=== PATIENT | female | born 1955 | race Caucasian/White ===

== ENCOUNTER 2020-02-15 10:28 | Outpatient (CLI) | payer MEDICARE, OTHER, SELFPAY ==
--- NOTE | 2020-02-15 10:43 | US_ITS ---
WS: [id number] ULTRASOUND PELVIS TECHNIQUE: Transabdominal and transvaginal. ULTRASOUND PELVIS TECHNIQUE: Transabdominal. CLINICAL INFORMATION: PELVIC PAIN : No. COMPARISON: None. FINDINGS: Atrophic uterus Orientation: Anteverted. Size: 7.2 cm x 3.5 cm x 2.8 cm. Masses: None. Cervix: Incidental nabothian cysts. Endometrium: Normal. Endometrium thickness: 0.4 cm. Adnexa: Neither ovary is visualized. No adnexal masses. Free fluid: None. Other findings: None. US/US pelvic with transvaginal IMPRESSION: 1. Atrophic uterus. Normal endometrium measuring 4 mm. 2. Neither ovary is visualized. No adnexal masses. 3. No free fluid in the cul-de-sac.
== END 2020-02-15 10:29 | disposition home or self-care (01) ==
LOC: RAD 10:34
PROVIDERS: PCP Family Medicine; Visit Provider Family Medicine
DX: R10.2 Pelvic and perineal pain (principal); N85.8 Other specified noninflammatory disorders of uterus
CPT/HCPCS: 76830; 76856

== ENCOUNTER 2020-02-23 10:47 | Outpatient (CLI) | payer MEDICARE, OTHER, SELFPAY ==
--- NOTE | 2020-02-23 10:55 | MM_ITS ---
WS: [id number] BILATERAL SCREENING DIGITAL MAMMOGRAM WITH CAD HISTORY: SCREENING COMPARISON: 06/15/2018 and 06/08/2017 Bilateral CC and MLO views submitted. Computer aided detection analyzed. Breast composition: The breasts are almost entirely fatty. No suspicious masses, microcalcifications or architectural distortion. Benign bilateral calcifications. MM/[id number] IMPRESSION: BI-RADS: 2-Benign FOLLOW UP: 1 Year Follow-up
== END 2020-02-23 10:48 | disposition home or self-care (01) ==
LOC: RADSHAW 10:52
PROVIDERS: PCP Family Medicine; Visit Provider Family Medicine
DX: Z12.31 Encounter for screening mammogram for malignant neoplasm of breast (principal)
CPT/HCPCS: 77067

== ENCOUNTER 2020-06-21 12:57 | Outpatient (CLI) | payer MEDICARE, OTHER, SELFPAY ==
--- NOTE | 2020-06-21 13:17 | CT_ITS ---
WS: [id number] CT PELVIS WITH CONTRAST. HISTORY: PELVIC PAIN TECHNIQUE: Contiguous imaging is performed of the pelvis with contrast. Coronal and sagittal reformat s are reviewed. All CT scans at [facility] use at least one of these dose optimization te chniques: automated exposure control; mA and/or kV adjustment per patient size (includes targeted exa ms where dose is matched to clinical indication); or iterative reconstruction. DLP: 1501.82 mGycm COMPARISON: None available. Prior appendectomy. The visualized GI tract is negative. No free fluid or adenopathy. No significant diverticular disease. Small atrophic ovary and uterus. Anterior pelvic wall hernia measures 3.4 cm. Omental fat is herniating through the defect. Mild bilateral facet joint arthritis. CT/CT pelvis w con* [id number] IMPRESSION: 1. No acute pelvic abnormality. 2. Ventral pelvic omental hernia. Note herniation of GI tract. 3. No adenopathy or ascites.
[2020-06-21] MEDS: iohexol 300 mg/mL 50 mL Btl PO (13:19)
[2020-06-21 13:49] LABS: Blood Urea Nitrogen 9 mg/dL (8-23); Glomerular Filtration Rate 83.7 mL/min (90-130)
[2020-06-21] MEDS: iohexol 300 mg/mL 100 mL Btl IV (14:00)
== END 2020-06-21 12:58 | disposition home or self-care (01) ==
PROVIDERS: PCP Family Medicine; Visit Provider Family Medicine
DX: R10.2 Pelvic and perineal pain (principal); K45.8 Other specified abdominal hernia without obstruction or gangrene
CPT/HCPCS: 72193; 82565; 84520; Q9967

== ENCOUNTER 2020-07-03 08:06 | Outpatient (CLI) | payer MEDICARE, OTHER, SELFPAY ==
[2020-07-03] MEDS: iohexol 300 mg/mL 50 mL Btl PO (08:46)
--- NOTE | 2020-07-03 09:30 | CT_ITS ---
WS: [id number] CT ABDOMEN AND PELVIS WITH CONTRAST HISTORY: R10.9 - Unspecified abdominal pain TECHNIQUE: Imaging performed of the abdomen and pelvis with IV contrast. Single phase imaging of the abdomen. Coronal and sagittal reformats are submitted. All CT scans at [facility] use at least one of these dose optimization techniques: automated exposure control; mA and/or kV adjustment per patient size (includes targeted exams where dose is matched to clinical indication); or iterativ e reconstruction. IV CONTRAST: Omnipaque 300; 95 mL IV. Oral contrast: No DLP: 1072.34 mGycm COMPARISON: 06/21/2020. Lower thorax: Lung bases are clear. Heart is normal size. Small hiatal hernia. Liver/biliary system: Surface of the liver is slightly irregular and lobulated with mild heterogeneit y. There is also mild pneumobilia. No mass or bile duct dilatation. Gallbladder: Status post cholecystectomy. Pancreas: Normal. Spleen: Normal. Adrenal glands: Normal. Right kidney: Normal. Left kidney: Normal. Aorta: Normal. There are numerous enlarged serpiginous venous structures in the RIGHT upper abdomen f rom splenorenal shunting which have been previously described. 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 Lymphadenopathy: None. Free fluid: None. GI tract: Unremarkable. Abdominal wall: Fat-containing ventral supraumbilical abdominal wall hernia with a diameter 5.9 cm. T here is an additional fat-containing midline hernia infraumbilical. Pelvis: Atrophic uterus. No free fluid or adenopathy. Large venous varicosities along the LEFT latera l peritoneal cavity into the pelvis. Bones: Unremarkable. CT/CT abdomen pelvis w con* [id number] IMPRESSION: 1. Prior cholecystectomy. 2. Small cirrhotic appearing liver with mild pneumobilia. Pneumobilia may be o n the basis of a cholecystectomy. 3. No abdominal or pelvic. 4. Supraumbilical and infraumbilical abdominal wall hernias containing fat onl y.
[2020-07-03] MEDS: iohexol 300 mg/mL 100 mL Btl IV (09:43)
== END 2020-07-03 08:07 | disposition home or self-care (01) ==
PROVIDERS: PCP Family Medicine; Visit Provider Surgery
DX: R10.9 Unspecified abdominal pain (principal); Z90.49 Acquired absence of other specified parts of digestive tract; K43.9 Ventral hernia without obstruction or gangrene
CPT/HCPCS: 74177; Q9967

== ENCOUNTER → 2020-07-27 11:20 | Outpatient (BNVA) | payer MEDICARE, OTHER, SELFPAY | PROVIDERS: PCP Family Medicine; Visit Provider Surgery | DX: Z01.812 Encounter for preprocedural laboratory examination (principal); Z20.822 Contact with and (suspected) exposure to COVID-19 | CPT/HCPCS: 87635 ==

== ENCOUNTER 2020-08-01 09:19 | Day surgery (SDC) | payer MEDICARE, OTHER, SELFPAY ==
[2020-07-30 14:17] VITALS: BMI 45.3
--- NOTE | 2020-08-01 09:44 | ANES.PREANE2 ---
Pre-Anesthetic Assessment Pre-Anesthetic Assessment: Height/Weight: Height 1.55 m Weight 108.862 kg Proposed Procedure: Operation Date: 08/01/20 10:45 Proposed Procedures p Colonoscopy 75708 Z86.010(Not Applicable) - Geoffrey Rivera MD Was Beta Lou taken within 24 hours: N/A Was Clonidine taken within 24 hours: N/A Social: Social History: No alcohol and No tobacco Exam: Pre-Anes Outpt Exam: alert, oriented x 3, clear to auscultation bilaterally and regular rate & rhythm Airway: Submandibular: WNL Cervical ROM: WNL MP: 2 Dentition: Chipped Additional comments: Poor dentition GI: Comments: Liver Tx Metabolic: Metabolic: Morbid obesity Anesthetic Plan: ASA status: 3 Anesthesia: MAC Risk of > 500 ml blood loss (7ml/kg in children): No PFSH Anesthesia PFSH: Medical History Hypotension Migraines Renal insufficiency Surgical History History of cholecystectomy History of colonoscopy with polypectomy 2016 History of liver transplant Family History Other Hypertension Denies family history of Diabetes CAD (coronary artery disease) Clotting disorder Dementia Hyperlipidemia Psychiatric illness Chronic kidney disease (CKD) Suicide Anesthesia complication Bleeding disorder Family history of premature coronary artery disease Lung disease Cancer Stroke Social History Smoking and tobacco status: former smoker Second hand smoke exposure: No Alcohol intake: never Data Anesthesia Cardiac Studies: No Data to Display
[2020-08-01 10:03] VITALS: BP 127/105; PULSE 86; RESP 20; TEMP 36.3; O2SAT 98
[2020-08-01] MEDS: sodium chloride 0.9% 1,000 ML 30 ML IV (10:09)
--- NOTE | 2020-08-01 10:12 | ECG_ITS ---
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 Measurements Intervals [place] Rate: 66 P: 15 FL: 174 QRS: -4 QRSD: 77 T: 23 QT: 396 QTc: 417 Interpretive Statements SINUS RHYTHM WITH SINUS ARRHYTHMIA No previous ECG available for comparison Electronically Signed On 08-07-2020 18:38:35 CDT by Lara Welch M.D. [id number]
--- NOTE | 2020-08-01 10:38 | P.HP_ITS ---
Same Day Surgery H&P Indication for Procedure/HPI DATE OF PROCEDURE: August 01, 2020 CHIEF COMPLAINT/INDICATIONFOR SURGICAL PROCEDURE: History of colon polyp PREOP DIAGNOSIS: History of colon polyps PLANNED PROCEDRUE: Operation Date: 08/01/20 10:45 Proposed Procedures p Colonoscopy 36673 Z86.010(Not Applicable) - Geoffrey Rivera MD This is a pleasant 64 years old female patient morbidly obese with a current BMI 45.3 presents to my practice with history of ventral abdominal wall hernia as she has been complaining of some discomfort of her lower abdomen for quite some time. Patient undergone a CT scan of the pelvis that showed: 1. No acute pelvic abnormality. 2. Ventral pelvic omental hernia. Note herniation of GI tract. 3. No adenopathy or ascites. Patient comes today escorted by her and she reports that she had liver transplantation back in 2007 in [place] and currently she is being followed up on by her pathologist Dr.Alexa Richter White office #[phone]. Patient on Prograf (tacrolimus) and her levels have been followed up on by her team manager. She also reports to me that she had history of colon polyps and she is due for a colonoscopy. Patient recalls that she has been sore of her lower abdomen for the past 5 to 6 years in the form being aching, gets worse with walking and gets better by just laying down and has been referred to her legs Interim history 08/01/2020 CT scan of the abdomen and pelvis was done and showed IMPRESSION: 1. Prior cholecystectomy. 2. Small cirrhotic appearing liver with mild pneumobilia. Pneumobilia may be on the basis of a cholecystectomy. 3. No abdominal or pelvic. 4. Supraumbilical and infraumbilical abdominal wall hernias containing fat only. Patient comes today for surveillance colonoscopy ROS All systems have been reviewed negative except as per the above or per problem list Medications/Allergies* Home Medications Medication Instructions Recorded Confirmed Type fluticasone propionate 50 2 spray INTRANASAL DAILY 05/05/19 08/01/20 History mcg/actuation nasal spray,suspension furosemide 20 mg tablet 20 mg PO DAILY 05/05/19 08/01/20 History potassium chloride 20 mEq 20 meq PO BID 05/05/19 08/01/20 History tablet,extended release(part/cryst) tacrolimus 1 mg capsule, 1 mg PO Q12H 05/05/19 08/01/20 History immediate-release triamcinolone acetonide 0.5 % 1 applic TOPICAL TID 05/05/19 08/01/20 History topical cream sumatriptan succinate 100 mg PO 07/30/20 History Allergies/Adverse Reactions Allergy/AdvReac Type Severity Reaction Status Date / Time codeine Allergy Severe difficulty Verified 08/01/20 11:35 breathing Current Medications: Generic Name Dose Route Start Last Admin Trade Name Freq PRN Reason Stop Dose Admin Sodium Chloride 1,000 mls @ 30 mls/hr 08/01/20 10:00 08/01/20 10:09 Sodium Chloride 0.9% IV 08/02/20 09:59 30 mls/hr .Q24H DANI Administration Pertinent History/Comorbid Conditions* Medical History (Updated 06/28/20 @ 16:07 by Geoffrey Rivera MD) Hypotension Migraines Renal insufficiency Surgical History (Updated 06/28/20 @ 16:08 by Geoffrey Rivera MD) History of cholecystectomy History of colonoscopy with polypectomy 2015 History of liver transplant Family History (Updated 05/05/19 @ 14:02 by Monica Bourne LPN) Hypertension Denies family history of Diabetes CAD (coronary artery disease) Clotting disorder Dementia Hyperlipidemia Psychiatric illness Chronic kidney disease (CKD) Suicide Anesthesia complication Bleeding disorder Family history of premature coronary artery disease Lung disease Cancer Stroke Social History Smoking and tobacco status: former smoker Second hand smoke exposure: No Alcohol intake: never Pertinent Exam Findings alert, oriented x 3, clear to auscultation bilaterally, regular rate & rhythm and procedure specific exam findings (Abdominal examination nontender nondistended soft) Recommendations Surgery/Procedure today (Surveillance colonoscopy) Other Plans: Plan of care; After thorough history and physical examination and reviewing the chart, plan to perform surveillance colonoscopy. I discussed with the patient in details the risks,benefits,alternatives and indications.The risk of aspiration, bleeding, soft tissue injury, perforation of the colon and other potential concomitant complications were explained to the patient in details,also the potential need for Laproscoy/Laparotomy to repair any related complications including but not limited to colectomy and or Closotomy.The patient understood this well and did agree to proceed. Rationale was carefully and clearly discussed with the patient.Appropriate informed consent have been reviewed and signed All questions have been answered and all concerns have been addressed to patient's satisfaction. 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
[2020-08-01 11:39] LABS: Anion Gap 10.9 (5-19); Blood Urea Nitrogen 8 mg/dL (8-23); Calcium 8.4 mg/dL (8.5-10.5); Carbon Dioxide 27 mmol/L (22-29); Chloride 106 mmol/L (98-107); Glomerular Filtration Rate 83.7 mL/min (90-130); Glucose 87 mg/dL (65-115); Osmolality Calculated 288 mOsm/kg (285-295); Potassium 3.9 mmol/L (3.5-5.1); Sodium 140 mmol/L (136-145)
[2020-08-01 12:08] VITALS: BP 125/77; PULSE 73; RESP 18; TEMP 36.9; O2SAT 98
[2020-08-01 12:27] VITALS: BP 138/67; PULSE 74; RESP 18; O2SAT 98
--- NOTE | 2020-08-01 13:31 | ANE.PACU2 ---
Inpatient post-anesthesia follow up: Airway intact: Yes Vital signs: Temperature 98.4 F Pulse Rate 74 Respiratory Rate 18 Blood Pressure 138/67 Pulse Oximetry 98 Oxygen Delivery Me thod Room Air Oxygen Flow Rate Fraction of Inspir ed Oxygen Hydration adequate: Yes Nausea and vomiting: No Pain level: 1 Mental status: Baseline
== END 2020-08-01 12:41 | disposition home or self-care (01) ==
PROVIDERS: PCP Family Medicine; Visit Provider Surgery
PROC: 0DJD8ZZ Inspection of Lower Intestinal Tract, Via Natural or Artificial Opening Endoscopic (ICD-10-PCS; CPT 45378; principal; 2020-08-01 10:45)
DX: Z12.11 Encounter for screening for malignant neoplasm of colon (principal); Z86.010 Personal history of colon polyps; E66.01 Morbid (severe) obesity due to excess calories; Z68.42 Body mass index [BMI] 45.0-49.9, adult; Z87.891 Personal history of nicotine dependence
CPT/HCPCS: 45378; 80048; 93005; 96360; 96361; J7030

== ENCOUNTER 2020-08-14 10:45 | Outpatient (CLI) | payer MEDICARE, OTHER, SELFPAY ==
--- NOTE | 2020-08-14 11:18 | XR_ITS ---
WS: [id number] DEXA (DUAL ENERGY X-RAY ABSORPTIOMETRY) Bone mineral density was performed using a [employer] machine. HISTORY: POSTMENOPAUSAL COMPARISON: None available. Lumbar spine BMD (L1-L4): 1.110 g/cm2 T score: -0.6 Z score: -0.1 Total hip BMD: Left: 0.944 g/cm2. T score: -0.5 Z score: 0.0 Right: 0.905 g/cm2. T score: -0.8 Z score: -0.4 10 year probability of a major osteoporotic fracture is 8%. XR/XR DEXA axial skeleton* [id number] IMPRESSION: NORMAL BONE MINERAL DENSITY based upon the WHO classification for females.
== END 2020-08-14 10:46 | disposition home or self-care (01) ==
PROVIDERS: PCP Family Medicine; Visit Provider Family Medicine
DX: Z78.0 Asymptomatic menopausal state (principal)
CPT/HCPCS: 77080

== ENCOUNTER 2021-05-01 07:53 | Outpatient (CLI) | payer MEDICARE, OTHER, SELFPAY ==
--- NOTE | 2021-05-01 08:11 | MM_ITS ---
WS: [id number] BILATERAL DIGITAL SCREENING MAMMOGRAPHY WITH CAD CLINICAL INFORMATION: SCREENING HISTORY: Screening mammogram. No current complaints. COMPARISON: February 23, 2020 TECHNIQUE: Bilateral CC and MLO views. FINDINGS: Scattered fibroglandular densities bilaterally. No suspicious focal mass, asymmetry, calcifications, or architectural distortion. No evidence of malignancy. MM/[place] [id number] IMPRESSION: BI-RADS: 1-Negative FOLLOW UP: 1 Year Follow-up Recommend return to annual screening mammography.
== END 2021-05-01 07:54 | disposition home or self-care (01) ==
LOC: RADSHAW 08:05
PROVIDERS: PCP Family Medicine; Visit Provider Family Medicine
DX: Z12.31 Encounter for screening mammogram for malignant neoplasm of breast (principal)
CPT/HCPCS: 77067

== ENCOUNTER → 2021-07-16 17:28 | Outpatient (BNVA) | payer MEDICARE, OTHER, SELFPAY | PROVIDERS: PCP Family Medicine; Visit Provider Physician Assistant Medical | DX: R53.83 Other fatigue (principal); K74.60 Unspecified cirrhosis of liver; Z94.4 Liver transplant status; Z79.899 Other long term (current) drug therapy; Z48.298 Encounter for aftercare following other organ transplant; E66.01 Morbid (severe) obesity due to excess calories | CPT/HCPCS: 80048; 80076; 80197; 82607; 84443; 85007; 85025; 85027 ==

== ENCOUNTER → 2021-10-15 10:58 | Outpatient (BNVA) | payer MEDICARE, OTHER, SELFPAY | PROVIDERS: PCP Family Medicine; Visit Provider Family Medicine | DX: Z94.4 Liver transplant status (principal); Z98.890 Other specified postprocedural states; Z86.010 Personal history of colon polyps | CPT/HCPCS: 80048; 80076; 80197; 85025 ==

== ENCOUNTER → 2022-01-09 09:10 | Outpatient (BNVA) | payer MEDICARE, OTHER, SELFPAY | PROVIDERS: PCP Family Medicine; Visit Provider Family Medicine | DX: Z94.4 Liver transplant status (principal); Z79.899 Other long term (current) drug therapy | CPT/HCPCS: 80053; 80197; 85025 ==

== ENCOUNTER → 2022-04-17 11:01 | Outpatient (BNVA) | payer MEDICARE, OTHER, SELFPAY | PROVIDERS: PCP Family Medicine; Visit Provider Family Medicine | DX: Z94.4 Liver transplant status (principal); Z48.298 Encounter for aftercare following other organ transplant | CPT/HCPCS: 80053; 80197; 85025 ==

== ENCOUNTER → 2022-04-22 11:21 | Outpatient (BNVA) | payer MEDICARE, OTHER, SELFPAY | PROVIDERS: PCP Family Medicine; Visit Provider Family Medicine | DX: R60.9 Edema, unspecified (principal) | CPT/HCPCS: 83880 ==

== ENCOUNTER 2022-05-02 09:06 | Outpatient (CLI) | payer MEDICARE, OTHER, SELFPAY ==
--- NOTE | 2022-05-02 09:15 | MM_ITS ---
WS: [id number] BILATERAL SCREENING DIGITAL TOMOSYNTHESIS MAMMOGRAM WITH CAD HISTORY: SCREENING COMPARISON: 05/01/2021 and 04/25/2019 Bilateral CC and MLO views with tomosynthesis and synthetic mammography submitted. Computer aided det ection analyzed. Breast composition: There are scattered areas of fibroglandular density. No suspicious masses, microc alcifications or architectural distortion. MM/[place] [id number] IMPRESSION: BI-RADS: 1-Negative FOLLOW UP: 1 Year Follow-up
== END 2022-05-02 09:07 | disposition home or self-care (01) ==
PROVIDERS: PCP Family Medicine; Visit Provider Family Medicine
DX: Z12.31 Encounter for screening mammogram for malignant neoplasm of breast (principal)
CPT/HCPCS: 77063; 77067

== ENCOUNTER 2022-05-21 06:03 | Outpatient (CLI) | payer MEDICARE, OTHER, SELFPAY ==
--- NOTE | 2022-05-21 06:15 | USCV_ITS ---
Serenity Brothers Age: 66 Gender: F : 1955 Exam Date: 05/21/2022 06:16 Ordering Phys: Luis Richards MD Technologist: ANJU [place] [facility] [place]: EDE[place] BP: 142 / 84 HR: 71 Rhythm: Sinus Technical Quality: Adequate MEASUREMENTS (Male / Female) Normal Values 2D ECHO LVOT Diameter 2.0 cm LV Ejection Fraction MOD 2C 52.8 % LV Ejection Fraction 2C AL 51.3 % LA Diameter 3.1 cm LA Width 3.3 cm LA Height 5.6 cm RA Width 4.4 cm RA Height 4.8 cm Aorta at Sinotubular Diameter 2.3 cm IVC Diameter 2.0 cm M-MODE Aortic Annulus Diameter 2.8 cm LA Ao Ratio MM 1.0 MV E Point Septal Separation 0.8 cm DOPPLER AV Peak Velocity 165.0 cm/s LVOT Peak Velocity 71.3 cm/s AV Area Cont Eq vti 1.6 cm squared AV Area Cont Eq pk 1.4 cm squared MV Peak Velocity 111.0 cm/s MV Area PHT 3.5 cm squared Mitral E to A Ratio 0.8 MV E' Velocity 49.5 cm/s Mitral E to MV E' Ratio 8.0 Mitral E to LV E' Lateral Ratio 7.9 Mitral E to LV E' Septal Ratio 8.1 TR Peak Velocity 186.4 cm/s TR Peak Gradient 13.9 mmHg TR Mean Velocity 198.8 cm/s TR Mean Gradient 15.6 mmHg TR Velocity Time Integral 77.0 cm TV Peak E Velocity 54.0 cm/s Right Atrial Pressure 3.0 mmHg Pulmonary Artery Systolic Pressu 16.9 mmHg PV Peak Velocity 124.0 cm/s RV Acceleration Time 0.1 s RV Ejection Time 0.3 s RV AcT/ET 0.5 FINDINGS Left Ventricle Normal left ventricular size and systolic function, EF 55 % (visual). No regional wall motion abnormalities. Grade I/IV diastolic dysfunction (abnormal relaxation filling pattern), normal to mildly elevated filling pressures. Right Ventricle The right ventricle is normal in size and function. Right Atrium The right atrium is normal in size. Left Atrium Mildly increased left atrial size. Mitral Valve Mild mitral annular calcification. Aortic Valve No gross abnormalities noted Tricuspid Valve No gross abnormalities noted Pulmonic Valve Pulmonic valve not well visualized. Pericardium Normal pericardium without effusion. Aorta Normal ascending aorta dimension. IVC Normal inferior vena cava. CONCLUSIONS Normal left ventricular size and systolic function, EF 55 % (visual). No regional wall motion abnormalities. Grade I/IV diastolic dysfunction (abnormal relaxation filling pattern), normal to mildly elevated filling pressures. Mildly increased left atrial size. Mild mitral annular calcification. There is no pericardial effusion. There are no intracardiac masses. No similar previous studies are available for comparison. Dr Luis Butler MD FAC (Electronically Signed) Final Date: 24 May 2022 18:59 S
== END 2022-05-21 06:04 | disposition home or self-care (01) ==
LOC: RAD 06:05
PROVIDERS: PCP Family Medicine; Visit Provider Family Medicine
DX: R60.9 Edema, unspecified (principal); R07.9 Chest pain, unspecified; I34.0 Nonrheumatic mitral (valve) insufficiency; Z94.4 Liver transplant status; Z48.298 Encounter for aftercare following other organ transplant; E66.01 Morbid (severe) obesity due to excess calories
CPT/HCPCS: 80048; 80076; 80197; 85025; 93306

== ENCOUNTER → 2022-06-24 08:52 | Outpatient (BNVA) | payer MEDICARE, OTHER, SELFPAY | PROVIDERS: PCP Family Medicine; Visit Provider Family Medicine | DX: Z94.4 Liver transplant status (principal); K75.81 Nonalcoholic steatohepatitis (NASH); Z48.298 Encounter for aftercare following other organ transplant | CPT/HCPCS: 80048; 80076; 80197; 85025 ==

== ENCOUNTER → 2022-08-05 08:23 | Outpatient (BNVA) | payer MEDICARE, OTHER, SELFPAY | PROVIDERS: PCP Family Medicine; Visit Provider Family Medicine | DX: Z48.298 Encounter for aftercare following other organ transplant (principal); Z94.4 Liver transplant status; E66.01 Morbid (severe) obesity due to excess calories | CPT/HCPCS: 80048; 80076; 80197; 85025 ==

== ENCOUNTER → 2022-09-04 08:59 | Outpatient (BNVA) | payer MEDICARE, OTHER, SELFPAY | PROVIDERS: PCP Family Medicine; Visit Provider Family Medicine | DX: Z94.4 Liver transplant status (principal); Z79.899 Other long term (current) drug therapy; Z48.298 Encounter for aftercare following other organ transplant; E66.01 Morbid (severe) obesity due to excess calories | CPT/HCPCS: 80048; 80076; 80197; 85025 ==

== ENCOUNTER → 2022-10-13 08:14 | Outpatient (BNVA) | payer MEDICARE, OTHER, SELFPAY | PROVIDERS: PCP Family Medicine; Visit Provider Family Medicine | DX: Z94.4 Liver transplant status (principal); K75.81 Nonalcoholic steatohepatitis (NASH) | CPT/HCPCS: 80048; 80076; 80197; 85025 ==

== ENCOUNTER → 2022-12-25 10:54 | Outpatient (BNVA) | payer MEDICARE, OTHER, SELFPAY | PROVIDERS: PCP Family Medicine; Visit Provider Family Medicine | DX: N28.9 Disorder of kidney and ureter, unspecified (principal); Z94.4 Liver transplant status | CPT/HCPCS: 80053; 80197; 85025 ==

== ENCOUNTER → 2023-04-08 08:34 | Outpatient (BNVA) | payer MEDICARE, OTHER, SELFPAY | PROVIDERS: PCP Family Medicine; Visit Provider Family Medicine | DX: Z94.4 Liver transplant status (principal); N28.9 Disorder of kidney and ureter, unspecified | CPT/HCPCS: 80053; 85025 ==

== ENCOUNTER 2023-05-18 11:39 | Outpatient (CLI) | payer MEDICARE, OTHER, SELFPAY ==
--- NOTE | 2023-05-18 11:59 | MM_ITS ---
WS: [id number] BILATERAL 3D TOMOSYNTHESIS DIGITAL SCREENING MAMMOGRAPHY WITH CAD CLINICAL INFORMATION: SCREENING HISTORY: Screening mammogram. No current complaints. COMPARISON: 2022 TECHNIQUE: Bilateral CC and MLO views. FINDINGS: Scattered fibroglandular densities bilaterally. No suspicious focal mass, asymmetry, calcifications, or architectural distortion. No evidence of malignancy. A few incidental punctate calcifications. IMPRESSION: MM/[place] [id number] BI-RADS: 2-Benign FOLLOW UP: 1 Year Follow-up Recommend return to annual screening mammography.
== END 2023-05-18 11:40 | disposition home or self-care (01) ==
LOC: RAD 11:40
PROVIDERS: PCP Family Medicine; Visit Provider Family Medicine
DX: Z12.31 Encounter for screening mammogram for malignant neoplasm of breast (principal)
CPT/HCPCS: 77063; 77067

== ENCOUNTER → 2023-06-17 09:24 | Outpatient (BNVA) | payer MEDICARE, OTHER, SELFPAY | PROVIDERS: PCP Family Medicine; Visit Provider Family Medicine | DX: Z98.890 Other specified postprocedural states (principal); Z86.010 Personal history of colon polyps; Z94.4 Liver transplant status; N28.9 Disorder of kidney and ureter, unspecified; M25.559 Pain in unspecified hip; R60.9 Edema, unspecified; L03.115 Cellulitis of right lower limb; J20.9 Acute bronchitis, unspecified; S81.819A Laceration without foreign body, unspecified lower leg, initial encounter; R53.83 Other fatigue | CPT/HCPCS: 80053; 80197; 85025 ==

== ENCOUNTER → 2023-09-16 08:19 | Outpatient (BNVA) | payer MEDICARE, OTHER, SELFPAY | PROVIDERS: PCP Family Medicine; Visit Provider Family Medicine | DX: Z94.4 Liver transplant status (principal); N18.9 Chronic kidney disease, unspecified | CPT/HCPCS: 80053; 80197; 85025 ==

== ENCOUNTER → 2023-12-15 09:06 | Outpatient (BNVA) | payer MEDICARE, OTHER, SELFPAY | PROVIDERS: PCP Family Medicine; Visit Provider Family Medicine | DX: Z94.4 Liver transplant status (principal); N18.9 Chronic kidney disease, unspecified | CPT/HCPCS: 80053; 80197; 85025 ==

== ENCOUNTER → 2023-12-28 12:42 | Outpatient (BNVA) | payer MEDICARE, OTHER, SELFPAY | PROVIDERS: PCP Family Medicine; Visit Provider Family Medicine | DX: R53.83 Other fatigue (principal); E11.9 Type 2 diabetes mellitus without complications | CPT/HCPCS: 82306; 82607; 83880; 84443 ==

== ENCOUNTER → 2024-03-22 08:52 | Outpatient (BNVA) | payer MEDICARE, OTHER, SELFPAY | PROVIDERS: PCP Family Medicine; Visit Provider Family Medicine | DX: N18.9 Chronic kidney disease, unspecified (principal); Z94.4 Liver transplant status | CPT/HCPCS: 80053; 80197; 85025 ==

== ENCOUNTER → 2024-04-13 08:58 | Outpatient (BNVA) | payer MEDICARE, OTHER, SELFPAY | PROVIDERS: PCP Family Medicine; Visit Provider Family Medicine | DX: J06.9 Acute upper respiratory infection, unspecified (principal) | CPT/HCPCS: 87400; 87426 ==

== ENCOUNTER 2024-05-25 08:26 | Outpatient (CLI) | payer MEDICARE, OTHER, SELFPAY ==
--- NOTE | 2024-05-25 08:29 | MM_ITS ---
WS: [id number] BILATERAL SCREENING DIGITAL TOMOSYNTHESIS MAMMOGRAM WITH CAD HISTORY: SCREENING COMPARISON: 05/18/2023, 05/01/2021 and 05/02/2022 Bilateral CC and MLO views with tomosynthesis and synthetic mammography submitted. Computer aided detection analyzed. Breast composition: There are scattered areas of fibroglandular density. No suspicious masses, microcalcifications or architectural distortion. MM/MM scr BI tomosynthesis [id number] IMPRESSION: BI-RADS: 1 - Negative. FOLLOW UP: 1 Year Follow-up
== END 2024-05-25 08:27 | disposition home or self-care (01) ==
PROVIDERS: PCP Family Medicine; Visit Provider Family Medicine
DX: Z12.31 Encounter for screening mammogram for malignant neoplasm of breast (principal); R92.323 Mammographic fibroglandular density, bilateral breasts
CPT/HCPCS: 77063; 77067

== ENCOUNTER → 2024-06-22 08:08 | Outpatient (BNVA) | payer MEDICARE, OTHER, SELFPAY | PROVIDERS: PCP Family Medicine; Visit Provider Family Medicine | DX: N28.9 Disorder of kidney and ureter, unspecified (principal); N18.9 Chronic kidney disease, unspecified | CPT/HCPCS: 80197; 85025 ==

== ENCOUNTER → 2024-06-30 13:02 | Outpatient (BNVA) | payer MEDICARE, OTHER, SELFPAY | PROVIDERS: PCP Family Medicine; Visit Provider Family Medicine | DX: R53.83 Other fatigue (principal) | CPT/HCPCS: 83880; 84443 ==

== ENCOUNTER → 2024-10-17 09:01 | Outpatient (BNVA) | payer MEDICARE, OTHER, SELFPAY | PROVIDERS: PCP Family Medicine; Visit Provider Family Medicine | DX: N18.9 Chronic kidney disease, unspecified (principal); I10 Essential (primary) hypertension | CPT/HCPCS: 80053; 80197; 85025 ==

== ENCOUNTER → 2024-12-12 08:42 | Outpatient (BNVA) | payer MEDICARE, OTHER, SELFPAY | PROVIDERS: PCP Family Medicine; Visit Provider Family Medicine | DX: Z79.899 Other long term (current) drug therapy (principal); Z94.4 Liver transplant status; E66.01 Morbid (severe) obesity due to excess calories | CPT/HCPCS: 80048; 80076; 80197; 85007; 85027 ==

== ENCOUNTER → 2025-01-19 14:42 | Outpatient (BNVA) | payer MEDICARE, OTHER, SELFPAY | PROVIDERS: PCP Family Medicine; Visit Provider Dermatology | DX: L71.9 Rosacea, unspecified (principal); D48.5 Neoplasm of uncertain behavior of skin | CPT/HCPCS: 11102; 99204 ==

== ENCOUNTER 2025-01-20 07:39 | Outpatient (CLI) | payer MEDICARE, OTHER, SELFPAY ==
--- NOTE | 2025-01-20 08:00 | USCV_ITS ---
Serenity Brothers Age: 69 Gender: F : 1955 Exam Date: 01/20/2025 08:00 Ordering Phys: Luis Richards MD Technologist: VINNIE [place] [facility] [place]: Dyspnea BP: 142 / 75 HR: 60 Rhythm: Sinus Technical Quality: Adequate MEASUREMENTS (Male / Female) Normal Values 2D ECHO LV Diastolic Diameter PLAX 5.8 cm 4.2 - 5.9 / 3.9 - 5.3 cm IVS Diastolic Thickness 0.7 cm 0.6 - 1.0 / 0.6 - 0.9 cm IVS Systolic Thickness 0.8 cm LVPW Diastolic Thickness 1.0 cm 0.6 - 1.0 / 0.6 - 0.9 cm LVPW Systolic Thickness 0.9 cm LVOT Diameter 2.0 cm LV Ejection Fraction 2D Teich 57.5 % LV Ejection Fraction MOD 4C 63.7 % LV Ejection Fraction MOD 2C 59.4 % LV Ejection Fraction 2C AL 59.7 % LA Diameter 3.9 cm RA Systolic Volume 4C AL 56.1 ml RA Systolic Volume 4C MOD 52.0 ml Aorta at Sinotubular Diameter 2.3 cm M-MODE LA Ao Ratio MM 1.5 AV Cusp Separation MM 1.6 cm DOPPLER AV Peak Velocity 138.0 cm/s LVOT Peak Velocity 108.0 cm/s AV Area Cont Eq vti 2.5 cm squared AV Area Cont Eq pk 2.5 cm squared MV Peak Velocity 106.0 cm/s MV Area PHT 3.4 cm squared Mitral E to A Ratio 0.8 TV Peak Velocity 224.0 cm/s TR Peak Velocity 230.0 cm/s TR Peak Gradient 21.2 mmHg TV Peak E Velocity 89.0 cm/s PV Peak Velocity 100.0 cm/s FINDINGS Left Ventricle Normal left ventricular size, systolic function and wall thickness, with no regional wall motion abnormalities. Left ventricular ejection fraction is estimated at 60 %. Grade I/IV diastolic dysfunction (abnormal relaxation filling pattern), normal to mildly elevated filling pressures. Right Ventricle Normal right ventricular size and systolic function. Right Atrium Normal right atrial size. Left Atrium Moderately increased left atrial size. IA Septum Normal appearance of the interatrial septum. Mitral Valve Mildly thickened mitral valve. No mitral valve stenosis. Mild mitral valve regurgitation. Aortic Valve Normal aortic valve structure. No aortic valve stenosis or regurgitation. Tricuspid Valve Normal tricuspid valve structure. No tricuspid valve stenosis or regurgitation. Normal pulmonary pressure. Pulmonic Valve Normal pulmonic valve structure. No pulmonic valve stenosis or regurgitation. Pericardium No pericardial effusion. Aorta Normal diameter of the aortic root and ascending thoracic aorta. IVC Normal IVC diameter. CONCLUSIONS Normal left ventricular size, systolic function and wall thickness, with no regional wall motion abnormalities. Left ventricular ejection fraction is estimated at 60 %. Grade I/IV diastolic dysfunction (abnormal relaxation filling pattern), normal to mildly elevated filling pressures. Mildly thickened mitral valve. No mitral valve stenosis. Mild mitral valve regurgitation. Moderately increased left atrial size. There is no pericardial effusion. Right atrial pressure is around 5 mm of mercury. Arlen Coyle MD (Electronically Signed) Final Date: 20 January 2025 20:35 S
== END 2025-01-20 07:40 | disposition home or self-care (01) ==
LOC: RAD 07:40
PROVIDERS: PCP Family Medicine; Visit Provider Family Medicine
DX: R07.9 Chest pain, unspecified (principal); R79.89 Other specified abnormal findings of blood chemistry; R93.1 Abnormal findings on diagnostic imaging of heart and coronary circulation; I51.7 Cardiomegaly; I34.0 Nonrheumatic mitral (valve) insufficiency
CPT/HCPCS: 93306

== ENCOUNTER → 2025-02-02 10:22 | Outpatient (BNVA) | payer MEDICARE, OTHER, SELFPAY | PROVIDERS: PCP Family Medicine; Visit Provider Dermatology | DX: L71.9 Rosacea, unspecified (principal); Z79.899 Other long term (current) drug therapy; D48.5 Neoplasm of uncertain behavior of skin | CPT/HCPCS: 11102; 99214 ==

== ENCOUNTER → 2025-03-02 08:36 | Outpatient (BNVA) | payer MEDICARE, OTHER, SELFPAY | PROVIDERS: PCP Family Medicine; Visit Provider Dermatology | DX: C44.321 Squamous cell carcinoma of skin of nose (principal); L71.9 Rosacea, unspecified; Z08 Encounter for follow-up examination after completed treatment for malignant neoplasm; Z85.828 Personal history of other malignant neoplasm of skin; Z94.4 Liver transplant status; Z79.899 Other long term (current) drug therapy; D48.5 Neoplasm of uncertain behavior of skin | CPT/HCPCS: 11102; 99214 ==

== ENCOUNTER → 2025-03-13 08:35 | Outpatient (BNVA) | payer MEDICARE, OTHER, SELFPAY | PROVIDERS: PCP Family Medicine; Visit Provider Family Medicine | DX: N18.9 Chronic kidney disease, unspecified (principal); Z94.4 Liver transplant status; R79.89 Other specified abnormal findings of blood chemistry | CPT/HCPCS: 80048; 80076; 80197; 85025 ==